=== PATIENT | female | born 1990 | race Caucasian/White ===

== ENCOUNTER 2016-05-04 | Emergency (ER) | payer OTHER ==
[2016-05-04] MEDS ORDERED: Ibuprofen TAB* 600 MG PO ONE (01:22)
[2016-05-04 01:29] LABS: Hematocrit 39 % (35-47); Mean Corpuscular HGB Conc 33 g/dl (31-36); Mean Corpuscular Hemoglobin 32 pg (27-31); Mean Corpuscular Volume 96 fL (80-97); Mean Platelet Volume 8 um3 (7.4-10.4); Red Blood Count 4.07 10^6/ul (4.0-5.4); Red Cell Distribution Width 14 % (10.5-15); White Blood Count 10.9 10^3/ul (3.5-10.8)
[2016-05-04 01:42] LABS: Albumin 4.5 g/dL (3.2-5.2); BUN/Creatinine Ratio 23.9 (8-20); EGFR African American 139.1 (>60); EGFR Non-African American 108.1 (>60); Globulin 2.9 g/dL (2-4); Total Bilirubin 0.6 mg/dL (0.2-1.0); Total Protein 7.4 g/dL (6.4-8.9)
[2016-05-04 01:47] LABS: Potassium 3.6 mmol/L (3.5-5.0)
--- NOTE | 2016-05-04 04:44 | ED ---
Monique Harrison Matthew, scribed for Noel Oconnell on 05/04/16 at 0409 . HPI Chest Pain - HPI Summary HPI Summary: A 26 y/o female presents to the ED with constant left sided chest pain since an hour and half ago. The pain is described as tightness, radiates into the left shoulder, and is rated 9/10 in severity. Associated symptoms include back pain. She denies abdominal pain. She states that she is unable to take deep breaths from the pain. Her chest pain has slightly improved since the onset. The patient is refusing a CXR citing she's had numerous XRs in the past. Hx of migraines. - History of Current Complaint Chief Complaint: EDChestPainROMI Time Seen by Provider: 05/04/16 00:32 Hx Obtained From: Patient Onset/Duration: Started Hours Ago, Atraumatic, Still Present Timing: Constant Initial Severity: Moderate Current Severity: Moderate Pain Intensity: 9 Pain Scale Used: 0-10 Numeric Chest Pain Location: Left Lateral Chest Pain Radiates: Yes Chest Pain Radiates To:: Shoulder - LT Character: Tightness Associated Signs and Symptoms: Positive: Chest Pain, Back Pain. Negative: Abdominal Pain - Allergy/Home Medications Allergies/Adverse Reactions: Allergies Allergy/AdvReac Type Severity Reaction Status Date / Time Acetaminophen [From Tylenol] Allergy Swelling Verified 08/30/15 21:42 Of Face,Lips,& Throat Latex Allergy Rash Verified 08/30/15 21:42 PMH/Surg Hx/FS Hx/Imm Hx Endocrine/Hematology History: Denies: Hx Diabetes, Hx Thyroid Disease Cardiovascular History: Denies: Hx Hypertension, Hx Pacemaker/ICD Respiratory History: Denies: Hx Asthma, Hx Chronic Obstructive Pulmonary Disease (COPD) GI History: Denies: Hx Ulcer Sensory History: Denies: Hx Hearing Aid Neurological History: Reports: Hx Migraine Psychiatric History: Denies: Hx Panic Disorder - Surgical History Surgery Procedure, Year, and Place: WISDOM TEETH EXTRACTION Infectious Disease History: No Infectious Disease History: Denies: Hx Hepatitis, Hx Human Immunodeficiency Virus (HIV), Traveled Outside the [place] in Last 30 Days - Family History Family History: FHx of [place] - Social History Alcohol Use: Rare Alcohol Amount: rarely Substance Use Type: Reports: None Smoking Status (MU): Never Smoked Tobacco Review of Systems Constitutional: Negative Eyes: Negative ENT: Negative Positive: Chest Pain Respiratory: Negative Negative: Shortness Of Breath Gastrointestinal: Negative Negative: Abdominal Pain Genitourinary: Negative Positive: Myalgia - LT shoulder pain Skin: Negative Neurological: Negative Psychological: Normal All Other Systems Reviewed And Are Negative: Yes Physical Exam Triage Information Reviewed: Yes Vital Signs On Initial Exam: Initial Vitals Temp Pulse Resp BP Pulse Ox 99 F 112 18 121/58 99 05/04/16 00:18 05/04/16 00:18 05/04/16 00:18 05/04/16 00:18 05/04/16 00:18 Vital Signs Reviewed: Yes Appearance: Positive: Well-Appearing, No Pain Distress Skin: Positive: Warm, Skin Color Reflects Adequate Perfusion, Dry Head/Face: Positive: Normal Head/Face Inspection Eyes: Positive: EOMI, PAMELA ENT: Positive: Normal ENT inspection Neck: Positive: Supple, Nontender Respiratory/Lung Sounds: Positive: Clear to Auscultation, Breath Sounds Present Cardiovascular: Positive: RRR, Pulses are Symmetrical in both Upper and Lower Extremities Abdomen Description: Positive: Nontender, Soft Bowel Sounds: Positive: Present Musculoskeletal: Positive: Other - tenderness over the left chest Neurological: Positive: Normal, Sensory/Motor Intact, Alert, Oriented to Person Place, Time Psychiatric: Positive: Affect/Mood Appropriate - Nidia Coma Scale Coma Scale Total: 15 Diagnostics - Vital Signs Vital Signs Temp Pulse Resp BP Pulse Ox 05/04/16 00:18 99 F 112 18 121/58 99 - Laboratory Result Diagrams: 05/04/16 01:01 05/04/16 01:01 Lab Statement: Any lab studies that have been ordered have been reviewed, and results considered in the medical decision making process. Chest Pain Course/Dx - Course Assessment/Plan: A 26 y/o female presents to the ED with constant left sided chest pain since an hour and half ago. Labs were reviewed. The patient refused a CXR despite counseling on the importance of the exam. She repeatedly stated she has had too many XR in the past. The patient left against medical advice. - Diagnoses Provider Diagnoses: Chest pain, unspecified, refused chest xray, Left against medical advice Discharge - Discharge Plan Condition: Stable Disposition: AGAINST MEDICAL ADVICE Prescriptions: Ibuprofen TAB* [Motrin TAB* 600 MG] 600 mg PO Q8H PRN #20 tab PRN Reason: Pain Patient Education Materials: Chest Pain (ED), Against Medical Advice (ED) Referrals: [facility] [place], [place] [facility] [Outside] Additional Instructions: Please follow-up with your primary care physician 2 days. The documentation as recorded by the Monique mehta Matthew accurately reflects the service I personally performed and the decisions made by , Noel Oconnell.
[2016-05-04 07:03] VITALS: BP 97/78
== END 2016-05-04 05:22 | disposition left against medical advice (07) ==
LOC: ED
DX: R07.9 Chest pain, unspecified (principal); M25.512 Pain in left shoulder; M54.9 Dorsalgia, unspecified
CPT/HCPCS: 36415; 80053; 83880; 84484; 85025; 85379; 85610; 85730; 99283; A9270-GY